=== PATIENT | male | born 1960 | race Caucasian/White ===

== ENCOUNTER 2019-12-11 10:04 | Emergency (ER) | payer OTHER ==
[~2019-12-11] VITALS: Ht 177.8 cm; Wt 93.8 kg
[~2019-12-11 10:04] MED LIST: LANS30CA60 PO; LISI-170 PO
[2019-12-11 10:11] VITALS: BP 124/88
[2019-12-11] MEDS ORDERED: OXYcodone/APAP 5/325MG TABLET PO ONE (10:30)
[2019-12-11] MEDS ORDERED: OXYcodone/APAP 5/325MG TABLET ONE (10:38)
== END 2019-12-11 11:56 | disposition home or self-care (01) ==
LOC: ED 11:48
DX: S33.6XXA Sprain of sacroiliac joint, initial encounter (principal); S73.101A Unspecified sprain of right hip, initial encounter; M25.561 Pain in right knee; M54.31 Sciatica, right side; X58.XXXA Exposure to other specified factors, initial encounter; Y93.89 Activity, other specified; Y92.89 Other specified places as the place of occurrence of the external cause; Y99.8 Other external cause status
CPT/HCPCS: 72110; 73502; 73564; 99284; J7512